=== PATIENT | female | born 1970 | race Asian ===

== ENCOUNTER 2023-06-13 08:47 | Outpatient (CLI) | payer BC, OTHER, SELFPAY | END 2023-06-13 08:48 | disposition home or self-care (01) | LOC: CSHCT 08:47 | PROVIDERS: ATTEND Internal Medicine | DX: E78.00 Pure hypercholesterolemia, unspecified (principal); R00.0 Tachycardia, unspecified | CPT/HCPCS: 75571 ==

== ENCOUNTER 2023-09-23 08:35 | Outpatient (CLI) | payer BC | END 2023-09-23 08:36 | disposition home or self-care (01) | LOC: CSHMAMMO 08:35 | PROVIDERS: ATTEND Internal Medicine | DX: N64.89 Other specified disorders of breast (principal) | CPT/HCPCS: G0279 ==

== ENCOUNTER 2025-01-15 15:17 | Outpatient (CLI) | payer BC | END 2025-01-15 15:18 | disposition home or self-care (01) | LOC: CSHULT 15:17 | PROVIDERS: ATTEND Internal Medicine | DX: E03.9 Hypothyroidism, unspecified (principal); E04.2 Nontoxic multinodular goiter | CPT/HCPCS: 76536 ==